=== PATIENT | female | born 1945 | race American Indian/Alaskan Native ===

== ENCOUNTER 2018-02-11 08:30 | Day surgery (SDC) | payer OTHER ==
[2018-02-10 15:52] VITALS: BMI 32.4
[2018-02-11 09:35] VITALS: TEMP 98.5
[2018-02-11] MEDS ORDERED: oxyCODONE HCL 5 MG TABLET PO PRN ×2 (10:50)
[2018-02-11] MEDS ORDERED: IOHEXOL 180 MG/1 ML ML IJ ONE (11:00)
[2018-02-11] MEDS ORDERED: BETAMET ACET/BETAMET NA PH 30 MG/5 ML VIAL IM ONE ×2 (11:00)
[2018-02-11] MEDS ORDERED: LIDOCAINE HCL 1%, 10 MG/ML (50 mL VIAL) IJ ONE ×2 (11:00)
[2018-02-11] MEDS ORDERED: BUPIVACAINE HCL/PF 0.25% (2.5MG/ML) 10 ML VIAL IJ ONE ×2 (11:00)
[2018-02-11 13:54] VITALS: BP 131/72; PULSE 74
== END 2018-02-11 13:50 | disposition home or self-care (01) ==
LOC: JASU-SURG 08:30
PROVIDERS: ATTEND Physical Medicine & Rehabilitation
PROC: 3E0T3BZ Introduction of Anesthetic Agent into Peripheral Nerves and Plexi, Percutaneous Approach (ICD-10-PCS; 2018-02-11)
PROC: 3E0T33Z Introduction of Anti-inflammatory into Peripheral Nerves and Plexi, Percutaneous Approach (ICD-10-PCS; 2018-02-11)
PROC: BR16YZZ Fluoroscopy of Lumbar Facet Joint(s) using Other Contrast (ICD-10-PCS; 2018-02-11)
PROC: 3E0T33Z Introduction of Anti-inflammatory into Peripheral Nerves and Plexi, Percutaneous Approach (ICD-10-PCS; principal; 2018-02-11 10:00)
DX: M46.96 Unspecified inflammatory spondylopathy, lumbar region (principal); M54.5 Low back pain
CPT/HCPCS: 76000-TC-FY; 82962

== ENCOUNTER 2019-05-28 12:07 | Inpatient (IN) | payer OTHER ==
--- NOTE | 2019-05-28 12:19 | PDOC ---
History of Present Illness - General Chief Complaint: Pain Stated Complaint: ABD PAIN Time Seen by Provider: 05/28/19 12:16 History Source: Patient Exam Limitations: No Limitations - History of Present Illness Initial Comments: 05/28/19 12:34 73yF w PMHx DM, osteoperosis, asthma, chronic UTI presenting w 1 day dysuria, subjective fevers, alexi frontal headaches worse than previous episodes, generalized body aches progressively worsening since 5pm, emesis x2 yesterday. Took naproxen yesterday without relief. Last week admitted to [facility] for IV antibiotics for UTI, discharged on ciprofloxacin, antibiotics for UTI last week, urine culture grew ESBL+ only susceptible to nitrofurantoin, bactrim, and IV antibiotics, 3d ago Dr Aguayo from [facility] prescribed Bactrim for continuing symptoms but pt didnt pick it up from the pharmacy yet. Had chronic UTIs w admission over past 3 months. Denies cough, sore throat, neck stiffness, chest pain, SOB, diarrhea/constipation. Past History - Past Medical History Allergies/Adverse Reactions: Allergies Allergy/AdvReac Type Severity Reaction Status Date / Time No Known Drug Allergies Allergy Verified 02/11/18 09:29 Home Medications: Ambulatory Orders Albuterol Sulfate Inhaler - [Ventolin Hfa Inhaler -] 1 puff IH PRN PRN 10/21/17 Aspirin [Aspirin EC] 81 mg PO DAILY 10/21/17 Cetirizine HCl [Zyrtec -] 10 mg PO PRN PRN 10/21/17 Cyclobenzaprine HCl 10 mg PO HS 10/21/17 Diclofenac Sodium [Voltaren -] 75 mg PO DAILY 10/21/17 Gabapentin 300 mg PO DAILY 10/21/17 Glipizide 5 mg PO BID 10/21/17 Hydrochlorothiazide 25 mg PO DAILY 10/21/17 Loratadine [Claritin] 10 mg PO PRN PRN 10/21/17 Mirabegron [Myrbetriq] 50 mg PO DAILY 10/21/17 Ranitidine [Zantac -] 150 mg PO BID 10/21/17 Tramadol HCl [Ultram] 50 mg PO PRN PRN 10/21/17 Anemia: No Asthma: Yes Cancer: No Cardiac Disorders: Yes (STROKE - NO RESIDUAL) CVA: Yes COPD: No CHF: No Dementia: No Diabetes: Yes GI Disorders: Yes Disorders: No HTN: Yes Hypercholesterolemia: No Liver Disease: No Seizures: No Thyroid Disease: No - Surgical History Abdominal Surgery: Yes Appendectomy: No Cardiac Surgery: No Cholecystectomy: Yes Lung Surgery: No Neurologic Surgery: Yes (BACK SX) Orthopedic Surgery: Yes (KNEE REPLACEMENT - RIGHT) - Psycho Social/Smoking Cessation Hx Smoking History: Never smoked Have you smoked in the past 12 months: No Hx Alcohol Use: No Drug/Substance Use Hx: No Substance Use Type: None Hx Substance Use Treatment: No Review of Systems - Review of Systems Constitutional: Yes: Fever. No: Chills HEENTM: No: Eye Pain, Recent change in vision, Nose Pain, Throat Pain, Mouth Pain Respiratory: No: Cough, Shortness of Breath Cardiac (ROS): No: Chest Pain, Palpitations, Syncope ABD/GI: No: Abdominal Distended, Constipated, Diarrhea, Nausea, Vomiting : Yes: Burning, Dysuria. No: Discharge, Hematuria Musculoskeletal: Yes: Muscle Pain (generalized) Integumentary: No: Bruising, Dryness, Erythema Neurological: Yes: Headache. No: Seizure, Tingling Psychiatric: No: Anxiety, Depression, Stressors Endocrine: No: Excessive Sweating, Flushing, Intolerance to Cold, Intolerance to Heat Hematologic/Lymphatic: No: Anemia, Blood Clots *Physical Exam - Physical Exam General Appearance: Yes: Nourished, Appropriately Dressed, Mild Distress HEENT: positive: EOMI, CHA, Normal Voice, Hearing Grossly Normal. negative: Scleral Icterus (R), Scleral Icterus (L), Nasal Congestion Neck: positive: Supple. negative: Tender, Rigid, Decreased range of motion ( full ROM) Respiratory/Chest: positive: Lungs Clear, Normal Breath Sounds. negative: Chest Tender, Respiratory Distress, Crackles, Rales, Rhonchi, Stridor, Wheezing Cardiovascular: positive: Regular Rhythm, Regular Rate, S1, S2. negative: Edema , Murmur Gastrointestinal/Abdominal: positive: Normal Bowel Sounds, Tender (mild LLQ), Flat, Soft. negative: Organomegaly, Distended, Guarding Musculoskeletal: negative: CVA Tenderness (R), CVA Tenderness (L) Integumentary: positive: Normal Color, Dry Neurologic: positive: Fully Oriented, Alert, Normal Response, Responsive. negative: Numbness, Confused, Disoriented ED Treatment Course - LABORATORY CBC & Chemistry Diagram: 05/28/19 13:10 05/28/19 13:10 Medical Decision Making - Medical Decision Making 05/28/19 12:51 Kidney US shows unremarkable kidneys, no hydronephosis/perinephric fluid, splenomegaly WBC 11.5, total bili 2.8, +UTI --- 73yF w PMHx DM, osteoperosis, asthma, chronic UTI presenting w 1 day dysuria, subjective fevers, alexi frontal headaches, generalized body aches, LLQ pain d/t UTI. Previously cultures grew ESBL. Low concern for meningitis (no neck stiffness). Kidney US showed normal kidneys Given 1L NS, tylenol, reglan, meropenem Admitted m/s Dr Caldwell for ESBL+ UTI requiring IV antibiotics Discharge - Discharge Information Problems reviewed: Yes Clinical Impression/Diagnosis: UTI (urinary tract infection) Qualifiers: Urinary tract infection type: acute cystitis Hematuria presence: without hematuria Qualified Code(s): N30.00 - Acute cystitis without hematuria Condition: Improved - Follow up/Referral - Patient Discharge Instructions - Post Discharge Activity
[2019-05-28] MEDS ORDERED: SODIUM CHLORIDE 0.9% 500 ML INFUS.BAG IV ONE (12:39)
[2019-05-28] MEDS ORDERED: ACETAMINOPHEN 1000 MG/100 ML VIAL (NON FORMULARY) IVPB ONE (12:39)
[2019-05-28] MEDS ORDERED: METOCLOPRAMIDE HCL INJECTION 10 MG/2 ML VIAL IVPB ONE (12:39)
[2019-05-28] MEDS ORDERED: METOCLOPRAMIDE HCL INJECTION 10 MG/2 ML VIAL ONE (12:46)
[2019-05-28] MEDS ORDERED: ACETAMINOPHEN INJECTION 100 ML IVPB ONE (12:47)
[2019-05-28 13:32] LABS: BASO % 0.2 % (0-2.0); EOS % 0.3 % (0-4.5); HEMATOCRIT 38.5 % (32.4-45.2); HEMOGLOBIN 12.7 GM/dL (10.7-15.3); LYMPH % 12.4 % (8-40); MCH 27.1 pg (25.7-33.7); MEAN CELL VOLUME 82.1 fl (80-96); MEAN PLT VOLUME 8.1 fl (7.5-11.1); MONO % 4.8 % (3.8-10.2); NEUT % 82.3 % (42.8-82.8); PLATELET COUNT 209 K/MM3 (134-434); RBC 4.69 M/mm3 (3.60-5.2); RDW 16.4 % (11.6-15.6); WHITE BLOOD COUNT 11.5 K/mm3 (4.0-10.0)
[2019-05-28 13:44] LABS: PH,URINE 6.5 (5.0-8.0); URINE APPEARANCE TURBID; URINE BILIRUBIN NEGATIVE (NEGATIVE); URINE COLOR YELLOW; URINE GLUCOSE (UA) NEGATIVE (NEGATIVE); URINE KETONE NEGATIVE (NEGATIVE); URINE LEUK ESTERASE 3+ (NEGATIVE); URINE NITRITE POSITIVE (NEGATIVE); URINE PROTEIN 1+ (NEGATIVE)
--- NOTE | 2019-05-28 14:00 | PDOC ---
Attending Attestation - Resident Resident Name: Bahman Calzada - ED Attending Attestation I have performed the following: I have examined & evaluated the patient, The case was reviewed & discussed with the resident, I agree w/resident's findings & plan - HPI HPI: 05/28/19 14:00 73-year-old female with history of recurring UTI since spine surgery in December 2018 requiring 2-3 hospitalizations for IV antibiotics, most recently hospitalized about 1 week ago for recurring UTI symptoms, treated with 1 day of IV antibiotics then discharged home on 7-day course of oral antibiotics, persistence of symptoms including urgency/suprapubic discomfort/dysuria/chills. Seen by PCP 2 days ago and prescribed a new antibiotic which never arrived to the pharmacy, presents now with persistent urinary complaints and progression of her suprapubic pain to her left flank. Per patient, glucose levels have otherwise been well controlled during the week , is tolerating normal diet. - Physicial Exam PE: 05/28/19 14:01 Temp 99.2, blood pressure within normal limits Alert lying in stretcher, no acute distress Abdomen is soft/nondistended. Suprapubic discomfort to palpation without guarding or rebound, positive left CVA tenderness - Medical Decision Making 05/28/19 14:02 73-year-old female diabetic with history of ESBL UTI presents with persistent UTI symptoms, clinically consistent with pyelonephritis. No evidence of sirs or sepsis at this time, hemodynamically stable. Labs, urinalysis, urine culture Left renal ultrasound to rule out abscess given 1 week of symptoms with likely inadequate treatment Will need IV antibiotics and admission Heart Score/ECG Review #1 ECG reviewed & interpreted by me at: 14:36 General ECG Interpretation: Sinus Rhythm, Normal Rate (82), Normal Intervals ( qtc 481), No acute ischemic changes
[2019-05-28 14:10] LABS: ALBUMIN 3.8 g/dl (3.4-5.0); BILIRUBIN,TOTAL 2.8 mg/dL (0.2-1); BLOOD UREA NITROGEN 12.3 mg/dL (7-18); CALCIUM 8.8 mg/dL (8.5-10.1); CREATININE 0.7 mg/dL (0.55-1.3); POTASSIUM 3.6 mmol/L (3.5-5.1); TOT PROT 7.1 g/dl (6.4-8.2)
[2019-05-28 14:53] LABS: EPI CELLS 1.4 /HPF (0-5/HPF); HYALINE CASTS 2.12 /lpf (0-8); URINE BACTERIA 12865.9 /hpf (NEGATIVE); URINE WBC 1678.2 /hpf (0-5)
[2019-05-28] MEDS ORDERED: MEROPENEM 1 GM in DEXTROSE 5%-WATER 100 ML IVPB ONE (14:58)
--- NOTE | 2019-05-28 15:15 | EKG ---
Test Reason : Blood Pressure : / mmHG Vent. Rate : 082 BPM Atrial Rate : 082 BPM P-R Int : 186 ms QRS Dur : 088 ms QT Int : 412 ms P-R-T Axes : 048 049 057 degrees QTc Int : 481 ms NORMAL SINUS RHYTHM NORMAL ECG WHEN COMPARED WITH ECG OF 10-APR-2005 09:47, NO SIGNIFICANT CHANGE WAS FOUND Confirmed by OTTO ARNOLD MD ([id number]) on 05/28/2019 3:14:53 PM Referred By: Confirmed By:OTTO ARNOLD MD
[2019-05-28] MEDS ORDERED: KETOROLAC TROMETHAMINE 30 MG/1 ML VIAL IVPUSH ONE (17:07)
[2019-05-28] MEDS ORDERED: KETOROLAC TROMETHAMINE 30 MG/1 ML VIAL ONE (17:15)
[2019-05-28] MEDS ORDERED: ONDANSETRON 4 MG/2 ML VIAL IVPUSH ONE (17:57)
[2019-05-28] MEDS ORDERED: ONDANSETRON 4 MG/2 ML VIAL ONE (18:05)
[2019-05-29] MEDS ORDERED: traMADol HCL 50 MG TABLET PO ONE (01:58)
[2019-05-29] MEDS ORDERED: DEXTROSE 5%-WATER 100 ML IVPB ONE ×2 (03:30→09:37)
[2019-05-29] MEDS ORDERED: MEROPENEM 1 GM VIAL (RESTRICTED TO ID) IVPB ONE ×2 (03:30→09:37)
[2019-05-29] MEDS: SODIUM CHLORIDE 1,000 ML IV SCH (03:37)
[2019-05-29] MEDS: MEROPENEM 1 GM in DEXTROSE 5%-WATER 100 ML IVPB SCH ×2 (03:38→09:43)
--- NOTE | 2019-05-29 04:49 | HP ---
Admitting History and Physical - Primary Care Physician PCP: Zita Tariq - Admission Chief Complaint: Fever, Flank Pain History of Present Illness: This is a 73 y/o woman with a PMHx of HTN, DM, OA, Chronic UTI +ESBL. Who presents to the ED for fever, dysuria, and L- flank pain. Patient is Chinese speaking [employer] used #[id number]. Patient reports completing 2 courses of ABX recently, first x 7 days, second x 10 days, completed last Saturday, she was unable to tell me the name of the ABX. The patient reports subjective fever 102 with chills, headache. Patient denies SOB, CP, palpitations, N/V/D, constipation. History Source: Patient Limitations to Obtaining History: Language Barrier (Chinese) - Past Medical History Cardiovascular: Yes: HTN Pulmonary: Yes: Asthma Renal/: Yes: UTI Musculoskeletal: Yes: Osteoarthritis Endocrine: Yes: Diabetes Mellitus - Past Surgical History Past Surgical History: Yes: Hernia Repair, Joint Replacement (Right Knee) - Smoking History Smoking history: Never smoked Have you smoked in the past 12 months: No - Alcohol/Substance Use Hx Alcohol Use: No History of Substance Use: reports: None - Social History Usual Living Arrangement: Yes: With Child (grandchildren) ADL: Independent History of Recent Travel: No Home Medications - Allergies Allergies/Adverse Reactions: Allergies Allergy/AdvReac Type Severity Reaction Status Date / Time No Known Drug Allergies Allergy Verified 02/11/18 09:29 - Home Medications Home Medications: Ambulatory Orders Albuterol Sulfate Inhaler - [Ventolin Hfa Inhaler -] 1 puff IH PRN PRN 10/21/17 Aspirin [Aspirin EC] 81 mg PO DAILY 10/21/17 Cetirizine HCl [Zyrtec -] 10 mg PO PRN PRN 10/21/17 Cyclobenzaprine HCl 10 mg PO HS 10/21/17 Diclofenac Sodium [Voltaren -] 75 mg PO DAILY 10/21/17 Gabapentin 300 mg PO DAILY 10/21/17 Glipizide 5 mg PO HS 10/21/17 Hydrochlorothiazide 25 mg PO DAILY 10/21/17 Loratadine [Claritin] 10 mg PO PRN PRN 10/21/17 Mirabegron [Myrbetriq] 50 mg PO DAILY 10/21/17 Ranitidine [Zantac -] 150 mg PO BID 10/21/17 Tramadol HCl [Ultram] 50 mg PO PRN PRN 10/21/17 Family Medical History Family Hx Cancer: Mother (Uterine ) Review of Systems - Review of Systems Constitutional: reports: Chills, Fever Eyes: reports: No Symptoms HENT: reports: No Symptoms Neck: reports: No Symptoms Cardiovascular: reports: No Symptoms Respiratory: reports: No Symptoms Gastrointestinal: reports: Abdominal Pain Genitourinary: reports: Dysuria, Flank Pain. denies: Hematuria Breasts: reports: No Symptoms Reported Musculoskeletal: reports: Back Pain Integumentary: reports: No Symptoms Neurological: reports: Headache Endocrine: reports: No Symptoms Hematology/Lymphatic: reports: No Symptoms Psychiatric: reports: No Symptoms Pain Intensity: 6 Physical Examination Vital Signs: Vital Signs Temperature 98.7 F 05/28/19 22:00 Pulse Rate 82 05/28/19 22:00 Respiratory Rate 18 05/28/19 22:00 Blood Pressure 136/64 05/28/19 22:00 O2 Sat by Pulse Oximetry (%) 99 05/28/19 19:25 Constitutional: Yes: Mild Distress, Obese Eyes: Yes: WNL, Conjunctiva Clear, EOM Intact, PERRL HENT: Yes: WNL, Atraumatic, Normocephalic Neck: Yes: WNL, Supple, Trachea Midline Cardiovascular: Yes: WNL, Regular Rate and Rhythm, S1, S2 Respiratory: Yes: WNL, Regular, CTA Bilaterally Gastrointestinal: Yes: Normal Bowel Sounds, Soft, Tenderness (LLQ) ...Rectal Exam: Yes: Deferred Renal/: Yes: CVA Tenderness - Left Breast(s): Yes: WNL Musculoskeletal: Yes: Back Pain Extremities: Yes: WNL Edema: No Peripheral Pulses WNL: Yes Integumentary: Yes: WNL Neurological: Yes: WNL, Alert, Oriented, Cran Nerves II-XII Intact ...Motor Strength: WNL Psychiatric: Yes: WNL, Alert Labs: CBC, BMP 05/28/19 13:10 05/28/19 13:10 Laboratory Results - last 24 hr 05/28/19 05/28/19 05/28/19 13:10 13:10 13:10 WBC 11.5 H RBC 4.69 Hgb 12.7 Hct 38.5 MCV 82.1 MCH 27.1 MCHC 33.0 RDW 16.4 H Plt Count 209 MPV 8.1 Absolute Neuts (auto) 9.5 H Neutrophils % 82.3 Lymphocytes % 12.4 Monocytes % 4.8 Eosinophils % 0.3 Basophils % 0.2 Nucleated RBC % 0 Sodium 138 Potassium 3.6 Chloride 100 Carbon Dioxide 31 Anion Gap 6 L BUN 12.3 Creatinine 0.7 Est GFR (CKD-EPI)AfAm 101.03 Est GFR (CKD-EPI)NonAf 87.17 Random Glucose 147 H Lactic Acid Calcium 8.8 Total Bilirubin 2.8 H AST 20 ALT 22 Alkaline Phosphatase 116 Total Protein 7.1 Albumin 3.8 Urine Color Yellow Urine Appearance Turbid Urine pH 6.5 Ur Specific [place] 1.020 Urine Protein 1+ H Urine Glucose (UA) Negative Urine Ketones Negative Urine Blood 1+ H Urine Nitrite Positive H Urine Bilirubin Negative Urine Urobilinogen 1.0 Ur Leukocyte Esterase 3+ H Urine WBC (Auto) 1678.2 Urine RBC (Auto) 37.0 Urine Casts (Auto) 2.12 U Epithel Cells (Auto) 1.4 Urine Bacteria (Auto) 22927.9 Influenza A (Rapid) Influenza B (Rapid) 05/28/19 05/28/19 13:10 14:55 WBC RBC Hgb Hct MCV MCH MCHC RDW Plt Count MPV Absolute Neuts (auto) Neutrophils % Lymphocytes % Monocytes % Eosinophils % Basophils % Nucleated RBC % Sodium Potassium Chloride Carbon Dioxide Anion Gap BUN Creatinine Est GFR (CKD-EPI)AfAm Est GFR (CKD-EPI)NonAf Random Glucose Lactic Acid 1.3 Calcium Total Bilirubin AST ALT Alkaline Phosphatase Total Protein Albumin Urine Color Urine Appearance Urine pH Ur Specific [place] Urine Protein Urine Glucose (UA) Urine Ketones Urine Blood Urine Nitrite Urine Bilirubin Urine Urobilinogen Ur Leukocyte Esterase Urine WBC (Auto) Urine RBC (Auto) Urine Casts (Auto) U Epithel Cells (Auto) Urine Bacteria (Auto) Influenza A (Rapid) Negative Influenza B (Rapid) Negative Intake & Output 05/26/19 05/27/19 05/28/19 05/29/19 23:59 23:59 23:59 23:59 Intake Total 300 Balance 300 Weight 82.01 kg Imaging - Results Ultrasound: Report Reviewed, Image Reviewed EKG: Report Reviewed, Image Reviewed Problem List - Problems (1) Complicated UTI (urinary tract infection) Assessment/Plan: Likely secondary to Failed Outpatient Therapy ? ESBL hx UA- +1 protein, +3 blood, +nitrate, WBC 1678, Bacteria 62531 Urine Culture pending WBC 11.5 Renal US- kidneys unremarkable perinephric fluid collection is seen, splenomegaly Meropenem given in ED, will continue Appreciate ID consult Pyridum prn Monitor CBC, BMP Monitor vitals Code(s): N39.0 - URINARY TRACT INFECTION, SITE NOT SPECIFIED (2) HTN (hypertension) Assessment/Plan: stable Monitor BP Continue home meds Code(s): I10 - ESSENTIAL (PRIMARY) HYPERTENSION (3) Diabetes mellitus Assessment/Plan: Stable BGMs ISS Code(s): E11.9 - TYPE 2 DIABETES MELLITUS WITHOUT COMPLICATIONS (4) Asthma Assessment/Plan: stable No acute flare Continue home meds Code(s): J45.909 - UNSPECIFIED ASTHMA, UNCOMPLICATED (5) Osteoarthritis Assessment/Plan: stable Tylenol prn Code(s): M19.90 - UNSPECIFIED OSTEOARTHRITIS, UNSPECIFIED SITE Assessment/Plan This is a 73 y/o woman with a PMHx of HTN, DM, OA, Asthma, Chronic UTIs +ESBL. Admitted to [facility] for Complicated UTI for further evaluation of their emergent condition. Plan: See Problem List FEN PO fluids as tolerated Replete lytes prn Low Na, Diabetic Diet DVT ppx OOB SCDs Heparin SQ Dispo: Requires Inpatient Care Visit type - Emergency Visit Emergency Visit: Yes ED Registration Date: 05/28/19 Care time: The patient presented to the Emergency Department on the above date and was hospitalized for further evaluation of their emergent condition. - New Patient This patient is new to me today: Yes Date on this admission: 05/29/19 - Critical Care Critical Care patient: No
[2019-05-29] MEDS: glipiZIDE 5 MG TABLET (FP) PO SCH (07:07)
--- NOTE | 2019-05-29 08:12 | PN ---
Progress Note, Physician Chief Complaint: UTI History of Present Illness: Previous notes and events reviewed awake and alert NAD complain of R knee pain complain of dysuria, denies hematuria no leukocytosis - Current Medication List Current Medications: Active Medications Famotidine (Pepcid -) 20 mg PO BID [facility] Gabapentin (Neurontin -) 300 mg PO DAILY [facility] Glipizide (Glucotrol -) 5 mg PO DAILY@0700 [facility] Last Admin: 05/29/19 07:07 Dose: 5 mg Hydrochlorothiazide (Hctz -) 25 mg PO DAILY [facility] Sodium Chloride (Normal Saline -) 1,000 mls @ 75 mls/hr IV ASDIR SHAE Last Admin: 05/29/19 03:37 Dose: 75 mls/hr Meropenem 1 gm/ Dextrose 100 mls @ 200 mls/hr IVPB Q8H-IV SHAE Stop: 05/29/19 18:29 Last Admin: 05/29/19 03:38 Dose: 200 mls/hr Meropenem 1 gm/ Dextrose 100 mls @ 200 mls/hr IVPB Q8H-IV [facility] Non-Formulary Medication (Mirabegron [Myrbetriq]) 50 mg PO DAILY [facility] Phenazopyridine HCl (Pyridium -) 100 mg PO PC SHAE Stop: 05/31/19 08:59 - Objective Vital Signs: Vital Signs Temperature 98.7 F 05/29/19 06:00 Pulse Rate 79 05/29/19 06:00 Respiratory Rate 18 05/29/19 06:00 Blood Pressure 110/58 L 05/29/19 06:00 O2 Sat by Pulse Oximetry (%) 99 05/28/19 22:00 Constitutional: Yes: No Distress, Calm Eyes: Yes: Conjunctiva Clear HENT: Yes: Atraumatic Cardiovascular: Yes: Regular Rate and Rhythm Respiratory: Yes: Regular, CTA Bilaterally Gastrointestinal: Yes: Normal Bowel Sounds, Soft, Other (lower abdomen) Musculoskeletal: Yes: Back Pain, Other (r knee pain) Extremities: Yes: WNL Edema: No Neurological: Yes: Alert, Oriented Psychiatric: Yes: Alert, Oriented Labs: CBC, BMP 05/28/19 13:10 05/28/19 13:10 Microbiology 05/28/19 13:10 Urine - Urine Clean Catch Urine Culture - Preliminary Lactose Fermenting Neg Bacilli Problem List - Problems (1) Asthma Assessment/Plan: -Bronchodilators -keep SpO2 >90% -O2 via NC prn for SOB Code(s): J45.909 - UNSPECIFIED ASTHMA, UNCOMPLICATED (2) Complicated UTI (urinary tract infection) Assessment/Plan: -ID on board -no leukocytosis -low grade fever -UA shows 3+ leuks, positive nitrite, 1+ blood, 1+ protein -UC prelim positive -received Meropenem in ER -IV hydration -Pyridium Code(s): N39.0 - URINARY TRACT INFECTION, SITE NOT SPECIFIED (3) Diabetes mellitus Assessment/Plan: -BGM ACHS -ISS -Glucotrol -Diabetic diet Code(s): E11.9 - TYPE 2 DIABETES MELLITUS WITHOUT COMPLICATIONS (4) HTN (hypertension) Assessment/Plan: -HCTZ -low Na diet Code(s): I10 - ESSENTIAL (PRIMARY) HYPERTENSION (5) Osteoarthritis Assessment/Plan: -Tylenol prn -Lidocaine patch for RN knee Code(s): M19.90 - UNSPECIFIED OSTEOARTHRITIS, UNSPECIFIED SITE Assessment/Plan see problem list dvt ppx
[2019-05-29 09:26] LABS: HEMATOCRIT 34.9 % (32.4-45.2); HEMOGLOBIN 11.6 GM/dL (10.7-15.3); MCH 27.3 pg (25.7-33.7); MCHC 33.3 g/dl (32.0-36.0); MEAN PLT VOLUME 8.5 fl (7.5-11.1); PLATELET COUNT 193 K/MM3 (134-434); RBC 4.26 M/mm3 (3.60-5.2); RDW 16.3 % (11.6-15.6); WHITE BLOOD COUNT 7.2 K/mm3 (4.0-10.0)
[2019-05-29] MEDS ORDERED: PT OWN MED DRAWER 7, Y5N ONE ×2 (09:37→14:34)
[2019-05-29] MEDS: HYDROCHLOROTHIAZIDE 25 MG TABLET (FP) PO SCH (09:43)
[2019-05-29] MEDS: GABAPENTIN 300 MG CAPSULE (FP) PO SCH (09:43)
[2019-05-29] MEDS: FAMOTIDINE 20 MG TABLET PO SCH ×2 (09:44→21:53)
[2019-05-29] MEDS: PHENAZOPYRIDINE HCL 100 MG TABLET (FP) PO SCH ×3 (09:44→17:42)
[2019-05-29 09:52] LABS: CALCIUM 8.4 mg/dL (8.5-10.1); CREATININE 0.6 mg/dL (0.55-1.3)
[2019-05-29] MEDS ORDERED: PATIENT'S OWN MEDICATION (NON-FORMULARY) (Mirabegron [Myrbetriq] 50 MG) PO SCH (10:00)
[2019-05-29] MEDS ORDERED: ALBUTEROL SO4 0.083% IH SOL 2.5 MG/3 ML VIAL.NEB. NEB PRN (10:38)
[2019-05-29] MEDS ORDERED: ACETAMINOPHEN 325 MG TABLET (FP) PO PRN (10:42)
[2019-05-29] MEDS ORDERED: INSULIN (NOVOLOG) ASPART 100 UNITS/ML 10ML VIAL ONE (11:32)
[2019-05-29] MEDS ORDERED: POTASSIUM CHLORIDE ORAL LIQUID 20 MEQ/15 ML PO ONE (11:38)
[2019-05-29] MEDS: INSULIN SLIDING SCALE (NOVOLOG) 1 VIAL SQ SCH ×3 (11:40→21:58)
--- NOTE | 2019-05-29 13:19 | PN ---
Progress Note (short form) - Note Progress Note: ID consult dictated imp/reccd 73 yo female with chronic dysuria admitted with subjective fevers, chills, vomiting chronic dysuria, has left flank pain as well seen at [facility]- seen in ED, prescribed cipro seen by PMD dr mills (spoke with her)- switched to bactrim for ecoli esbl ( confirmed with [facility]) she didnot take the bactrim renal sonogram negative reports history of prior renal stones has been seen by urologist at [facility] in the past left pyelonephritis/stone? UTI esbl contact isolation ertapenam pending cultures spiral ct Problem List - Problems (1) Pyelonephritis Code(s): N12 - TUBULO-INTERSTITIAL NEPHRITIS, NOT SPCF ACUTE OR CHRONIC (2) Complicated UTI (urinary tract infection) Code(s): N39.0 - URINARY TRACT INFECTION, SITE NOT SPECIFIED (3) History of ESBL E. coli infection Code(s): Z86.19 - PERSONAL HISTORY OF OTHER INFECTIOUS AND PARASITIC DISEASES
--- NOTE | 2019-05-29 14:23 | CONS ---
INFECTIOUS DISEASE CONSULTATION DATE OF CONSULTATION: DATE OF DICTATION: 05/29/2019 HISTORY: This is a Guyanese-speaking 73-year-old woman who presented to the ER yesterday with complaints of subjective fevers, dysuria, myalgias, left flank pain, and vomiting. She was apparently seen at the end of the year at the ER at [facility] and was prescribed Cipro for a UTI. She was subsequently seen in follow up on Saturday with her PMD, , who I spoke to. She checked the cultures. They were growing an E. coli ESBL sensitive to Bactrim, and she ordered Bactrim for her. Apparently, the Bactrim was not delivered by the pharmacy, and the patient did not take it. Her dysuria and symptoms continued, and she came to the ER. She denies any cough, any shortness of breath, any chest pain, diarrhea, or constipation. ALLERGIES: She has no known drug allergies. MEDICATIONS: Include albuterol, aspirin, Zyrtec, cyclobenzaprine, Voltaren, gabapentin, Glipizide, hydrochlorothiazide, Claritin, Myrbetriq, Zantac, and Ultram. PAST MEDICAL HISTORY: Notable for asthma, prior CVA, diabetes. She has a history of chronic dysuria. She has a urologist at [facility]. SURGICAL HISTORY: Notable for cholecystectomy. She recently in [place] had lumbar back surgery, and she has had a right knee replacement. SOCIAL HISTORY: There is no history of cigarette, alcohol, or substance use. REVIEW OF SYSTEMS: As per HPI. There is no recent travel. PHYSICAL EXAMINATION: Vital Signs: Her current temperature is 99.7, which is her maximum temperature, her pulse is 82, blood pressure is 102/67, respiratory rate is 18. HEENT: She is normocephalic. Her eyes are anicteric. Neck: Supple. Lungs: Clear to auscultation. Heart: Regular rate and rhythm. She has left CVA tenderness as well as some discomfort in her left upper quadrant. Abdomen: Soft. She has no suprapubic pain. She, otherwise, has good bowel sounds. Extremities: Without edema. DIAGNOSTIC DATA: White count on admission was 11.5, today is 7.2, hemoglobin 11.6, platelets 193, BUN 10, creatinine 0.6. LFTs are notable for a total bilirubin of 2.8. Urinalysis has 3+ leukocytes with 1678 white cells. Influenza screen was negative. Blood cultures are negative. Urine culture is growing a lactose fermenting gram negative. Renal ultrasound done on admission shows unremarkable kidneys without any perinephric fluid. In summary, this is a 73-year-old woman with a history of chronic dysuria admitted with subjective fevers and chills. Physical exam consistent with pyelonephritis. She does give a history of, via her daughter who is present, for stones, and she has left flank pain concerning for pyelonephritis versus stones in the setting of a UTI. She needs contact isolation for ESBL organisms. I would treat her with ertapenem pending cultures and would obtain a spiral CT to rule out stone disease. SORIN ABAD M.D. [id number]
[2019-05-29] MEDS: ERTAPENEM SODIUM 1 GM in SODIUM CHLORIDE 50 ML IVPB SCH (14:58)
[2019-05-29] MEDS ORDERED: ZOLPIDEM TARTRATE 5 MG TABLET PO PRN (21:00)
[2019-05-29] MEDS: LIDOCAINE PATCH REMOVAL MC SCH (21:53)
[2019-05-30] MEDS: SODIUM CHLORIDE 1,000 ML IV SCH (05:46)
[2019-05-30] MEDS: glipiZIDE 5 MG TABLET (FP) PO SCH (06:08)
[2019-05-30] MEDS: INSULIN SLIDING SCALE (NOVOLOG) 1 VIAL SQ SCH ×4 (06:08→22:22)
[2019-05-30] MEDS: PHENAZOPYRIDINE HCL 100 MG TABLET (FP) PO SCH ×3 (11:30→17:59)
[2019-05-30] MEDS: HYDROCHLOROTHIAZIDE 25 MG TABLET (FP) PO SCH (11:30)
[2019-05-30] MEDS: GABAPENTIN 300 MG CAPSULE (FP) PO SCH (11:30)
[2019-05-30] MEDS: ERTAPENEM SODIUM 1 GM in SODIUM CHLORIDE 50 ML IVPB SCH (11:30)
[2019-05-30] MEDS: LIDOCAINE 5% TOPICAL PATCH TP SCH (11:30)
[2019-05-30] MEDS: FAMOTIDINE 20 MG TABLET PO SCH ×2 (11:31→22:16)
--- NOTE | 2019-05-30 11:52 | PN ---
Progress Note, Physician - Current Medication List Current Medications: Active Medications Acetaminophen (Tylenol -) 650 mg PO Q6H PRN PRN Reason: PAIN LEVEL 4 - 6 Last Admin: 05/29/19 11:35 Dose: 650 mg Albuterol Sulfate (Ventolin 0.083% Nebulizer Soln -) 1 amp NEB Q8H PRN PRN Reason: SHORT OF BREATH/WHEEZING Famotidine (Pepcid -) 20 mg PO BID [facility] Last Admin: 05/30/19 11:31 Dose: 20 mg Gabapentin (Neurontin -) 300 mg PO DAILY [facility] Last Admin: 05/30/19 11:30 Dose: 300 mg Glipizide (Glucotrol -) 5 mg PO DAILY@0700 [facility] Last Admin: 05/30/19 06:08 Dose: 5 mg Hydrochlorothiazide (Hctz -) 25 mg PO DAILY [facility] Last Admin: 05/30/19 11:30 Dose: 25 mg Sodium Chloride (Normal Saline -) 1,000 mls @ 75 mls/hr IV ASDIR [facility] Last Admin: 05/30/19 05:46 Dose: 75 mls/hr Meropenem 1 gm/ Dextrose 100 mls @ 200 mls/hr IVPB Q8H-IV SHAE Ertapenem 1 gm/ Sodium (Chloride) 50 mls @ 100 mls/hr IVPB DAILY [facility] Last Admin: 05/30/19 11:30 Dose: 100 mls/hr Insulin Aspart (Novolog Vial Sliding Scale -) 1 vial SQ ACHS [facility]; Protocol Last Admin: 05/30/19 06:08 Dose: Not Given Lidocaine (Lidoderm Patch -) 1 patch TP DAILY [facility] Last Admin: 05/30/19 11:30 Dose: 1 patch Miscellaneous (Lidoderm Patch Removal) 1 each MC DAILY@2200 [facility] Last Admin: 05/29/19 21:53 Dose: 1 each Non-Formulary Medication (Mirabegron [Myrbetriq]) 50 mg PO DAILY [facility] Phenazopyridine HCl (Pyridium -) 100 mg PO PC [facility] Stop: 05/31/19 08:59 Last Admin: 05/30/19 11:30 Dose: 100 mg Zolpidem Tartrate (Ambien -) 5 mg PO HS PRN PRN Reason: INSOMNIA Stop: 05/30/19 20:59 Last Admin: 01/10/20 21:54 Dose: 5 mg - Objective Vital Signs: Vital Signs Temperature 98.3 F 05/30/19 11:28 Pulse Rate 74 05/30/19 11:28 Respiratory Rate 18 05/30/19 11:28 Blood Pressure 127/62 05/30/19 11:28 O2 Sat by Pulse Oximetry (%) 98 05/29/19 22:00 Cardiovascular: Yes: Regular Rate and Rhythm Respiratory: Yes: Regular, CTA Bilaterally Gastrointestinal: Yes: Normal Bowel Sounds, Soft. No: Tenderness Labs: CBC, BMP 05/29/19 07:30 05/29/19 07:30 Assessment/Plan - Problems (1) Asthma Assessment/Plan: -Bronchodilators -keep SpO2 >90% -O2 via NC prn for SOB Code(s): J45.909 - UNSPECIFIED ASTHMA, UNCOMPLICATED (2) Complicated UTI (urinary tract infection) Assessment/Plan: -ID on board -no leukocytosis -low grade fever -UA shows 3+ leuks, positive nitrite, 1+ blood, 1+ protein -UC prelim positive - Orders 05/29/19 14:00 Ertapenem Sodium [Invanz -] 1 gm Sodium Chloride [Normal Saline 50 ml Minibag ] 50 ml IVPB DAILY Code(s): N39.0 - URINARY TRACT INFECTION, SITE NOT SPECIFIED (3) Diabetes mellitus Assessment/Plan: -BGM ACHS -ISS -Glucotrol -Diabetic diet Code(s): E11.9 - TYPE 2 DIABETES MELLITUS WITHOUT COMPLICATIONS (4) HTN (hypertension) Assessment/Plan: -HCTZ -low Na diet Code(s): I10 - ESSENTIAL (PRIMARY) HYPERTENSION (5) Osteoarthritis Assessment/Plan: -Tylenol prn -Lidocaine patch for RN knee Code(s): M19.90 - UNSPECIFIED OSTEOARTHRITIS, UNSPECIFIED SITE
[2019-05-30] MEDS ORDERED: ALBUTEROL SO4 0.083% IH SOL 2.5 MG/3 ML VIAL.NEB. NEB SCH (12:00)
--- NOTE | 2019-05-30 12:09 | PN ---
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 05/28/19 13:10 Blood - Peripheral Venous Blood Culture - Preliminary NO GROWTH OBTAINED AFTER 24 HOURS, INCUBATION TO CONTINUE FOR [address] scan pending a/p left pyelonephritis/stone? UTI-ecoli esbl contact isolation ertapenam day #[address] scan is negative can switch to po bactrim for 7 days s Problem List - Problems (1) Pyelonephritis Code(s): N12 - TUBULO-INTERSTITIAL NEPHRITIS, NOT SPCF ACUTE OR CHRONIC (2) Complicated UTI (urinary tract infection) Code(s): N39.0 - URINARY TRACT INFECTION, SITE NOT SPECIFIED (3) History of ESBL E. coli infection Code(s): Z86.19 - PERSONAL HISTORY OF OTHER INFECTIOUS AND PARASITIC DISEASES
[2019-05-30] MEDS: MEROPENEM 1 GM in DEXTROSE 5%-WATER 100 ML IVPB SCH (13:24)
[2019-05-30] MEDS: ALBUTEROL SO4 0.083% IH SOL 2.5 MG/3 ML VIAL.NEB. NEB SCH ×2 (13:55→20:37)
[2019-05-30 14:49] VITALS: BMI 31.8
[2019-05-30] MEDS: LIDOCAINE PATCH REMOVAL MC SCH (22:17)
[2019-05-31] MEDS: INSULIN SLIDING SCALE (NOVOLOG) 1 VIAL SQ SCH ×2 (06:24→12:15)
[2019-05-31] MEDS: glipiZIDE 5 MG TABLET (FP) PO SCH (06:24)
[2019-05-31] MEDS: ALBUTEROL SO4 0.083% IH SOL 2.5 MG/3 ML VIAL.NEB. NEB SCH (08:23)
[2019-05-31 09:48] VITALS: BP 154/78; PULSE 92; TEMP 98.2
[2019-05-31] MEDS: LIDOCAINE 5% TOPICAL PATCH TP SCH (10:21)
[2019-05-31] MEDS: HYDROCHLOROTHIAZIDE 25 MG TABLET (FP) PO SCH (10:21)
[2019-05-31] MEDS: ERTAPENEM SODIUM 1 GM in SODIUM CHLORIDE 50 ML IVPB SCH (10:21)
[2019-05-31] MEDS: FAMOTIDINE 20 MG TABLET PO SCH (10:22)
[2019-05-31] MEDS: GABAPENTIN 300 MG CAPSULE (FP) PO SCH (10:22)
--- NOTE | 2019-05-31 11:21 | DS ---
Physical Examination Vital Signs: Vital Signs Temperature 98.2 F 05/31/19 09:47 Pulse Rate 92 H 05/31/19 09:47 Respiratory Rate 20 05/31/19 09:47 Blood Pressure 154/78 05/31/19 09:47 O2 Sat by Pulse Oximetry (%) 98 05/30/19 21:00 Cardiovascular: Yes: Regular Rate and Rhythm Respiratory: Yes: Regular, CTA Bilaterally Gastrointestinal: Yes: Normal Bowel Sounds, Soft. No: Tenderness Labs: CBC, BMP 05/29/19 07:30 05/29/19 07:30 Discharge Summary Problems reviewed: Yes Reason For Visit: UTI Current Active Problems Asthma (Acute) Complicated UTI (urinary tract infection) (Acute) Diabetes mellitus (Acute) HTN (hypertension) (Acute) History of ESBL E. coli infection (Acute) Osteoarthritis (Acute) Pyelonephritis (Acute) UTI (urinary tract infection) (Acute) Hospital Course: Problems (1) Asthma Assessment/Plan: -Bronchodilators -keep SpO2 >90% -O2 via NC prn for SOB Code(s): J45.909 - UNSPECIFIED ASTHMA, UNCOMPLICATED (2) Complicated UTI (urinary tract infection) Assessment/Plan: -ID on board -no leukocytosis -low grade fever -UA shows 3+ leuks, positive nitrite, 1+ blood, 1+ protein -UC prelim positive - Orders 05/29/19 14:00 Ertapenem Sodium [Invanz -] 1 gm Sodium Chloride [Normal Saline 50 ml Minibag ] 50 ml IVPB DAILY --TO PO BACTRIM--D/W ID Code(s): N39.0 - URINARY TRACT INFECTION, SITE NOT SPECIFIED (3) Diabetes mellitus Assessment/Plan: -BGM ACHS -ISS -Glucotrol -Diabetic diet Code(s): E11.9 - TYPE 2 DIABETES MELLITUS WITHOUT COMPLICATIONS (4) HTN (hypertension) Assessment/Plan: -HCTZ -low Na diet Code(s): I10 - ESSENTIAL (PRIMARY) HYPERTENSION (5) Osteoarthritis Assessment/Plan: -Tylenol prn -Lidocaine patch for RN knee Code(s): M19.90 - UNSPECIFIED OSTEOARTHRITIS, UNSPECIFIED SITE Condition: Improved - Instructions Referrals: Columba Peterson MD [Primary Care Provider] - 1 Week - Home Medications Comprehensive Discharge Medication List: Ambulatory Orders Albuterol Sulfate Inhaler - [Ventolin HFA Inhaler -] 1 puff IH PRN PRN 10/21/17 Aspirin [Aspirin EC] 81 mg PO DAILY 10/21/17 Cyclobenzaprine HCl 10 mg PO HS 10/21/17 Gabapentin 300 mg PO DAILY 10/21/17 Glipizide 5 mg PO HS 10/21/17 Hydrochlorothiazide 25 mg PO DAILY 10/21/17 Loratadine [Claritin] 10 mg PO PRN PRN 10/21/17 Mirabegron [Myrbetriq] 50 mg PO DAILY 10/21/17 Ranitidine [Zantac -] 150 mg PO BID 10/21/17 Tramadol HCl [Ultram] 50 mg PO PRN PRN 10/21/17 Sulfamethoxazole/Trimethoprim [Bactrim Ds -] 1 tab PO BID #14 tablet 05/31/19
== END 2019-05-31 14:04 | disposition home or self-care (01) | DRG 690 ==
LOC: JER 12:07 → JERBED 14:47 → J5S 20:23 → J7W 05-29 19:41
PROVIDERS: ADMIT Family Medicine; ATTEND Family Medicine
DX: N39.0 Urinary tract infection, site not specified (principal); J45.909 Unspecified asthma, uncomplicated; M81.0 Age-related osteoporosis without current pathological fracture; E11.9 Type 2 diabetes mellitus without complications; Z96.651 Presence of right artificial knee joint; Z86.19 Personal history of other infectious and parasitic diseases; B96.20 Unspecified Escherichia coli [E. coli] as the cause of diseases classified elsewhere
CPT/HCPCS: 36415; 74176-TC; 76775-TC; 80048; 80053; 81003; 82962; 83605; 85025; 85027; 87040; 87086; 87186; 87804; 93005; 93010; 94640; 99283-25; J0131; J7030